=== PATIENT | male | born 1965 | race Two or more races ===

== ENCOUNTER 2021-11-26 19:33 | Emergency (ER) | payer OTHER ==
[~2021-11-26] VITALS: Ht 167.6 cm; Wt 70.3 kg
--- NOTE | 2021-11-26 19:33 | NUR ---
Henry from [facility] snf for gt dislodged/leaking per report ongoing tx for PNA. TRACH INTACT & RT AT PT'S BEDSIDE CONNECTED PT TO VENT SETTINGS. F/C IN GTUBE SITE AND OPEN. PT A/OX0; NONVERBAL. CONNECTED PT TO POX AND MONITOR. SAFETY MEASURES IN PLACE.
--- NOTE | 2021-11-26 20:33 | NUR ---
RT NOTE RECEIVED PT ON CURRENT VENT SETTING. AC 12 550 40% +5 WITH A PORTEX 7 TRACH. BS CLEAR BILATERALLY. MINIMAL SECRETIONS. MOSTLY ORAL SECRETIONS NOTED. VENT PLUGGED INTO RED OUTLETS. ALARMS ON AND AUDIBLE. NO S/SOF RESPIRATORY DISTRESS NOTED
--- NOTE | 2021-11-26 20:35 | NUR ---
20G ESTABLISHED AT AND [facility]. BLOOD COLLECTED AND SENT TO LAB.
--- NOTE | 2021-11-26 20:40 | NUR ---
ALETA COLLECTED AND SENT TO LAB
--- NOTE | 2021-11-26 20:42 | NUR ---
103.3 RECTAL TEMP. MADE AWARE. COOLING MEASURES IMPLEMENTED.
[2021-11-26] MEDS ORDERED: ACETAMINOPHEN 650 MG/SUPP.RECT RC ONE ×2 (20:46→21:00)
--- NOTE | 2021-11-26 21:10 | NUR ---
urine collected and sent to lab
[2021-11-26] MEDS ORDERED: PIPERACILLIN /TAZOBACTAM 3.375 G VIAL IV ONE (21:12)
[2021-11-26] MEDS ORDERED: VANCOMYCIN 1 GM VIAL ONE (21:12)
[2021-11-26] MEDS ORDERED: CEFEPIME 1 GM VIAL ONE (21:17)
--- NOTE | 2021-11-26 21:25 | NUR ---
DR. MARTIN GALVAN AT PT'S BEDSIDE INSERTED 22FR GTUBE. FLUSHES WELL; PATENT AND INTACT.
[2021-11-26] MEDS ORDERED: CEFEPIME 2 GM in IV D5W 100 ML IV ONE (21:30)
[2021-11-26] MEDS ORDERED: PIPERACILLIN /TAZOBACTAM 3.375 G in IV D5W 50 ML IV ONE (21:30)
[2021-11-26] MEDS ORDERED: VANCOMYCIN 1 GM in IV D5W 250 ML IV ONE (21:30)
[2021-11-26] MEDS ORDERED: IV NS 0.9% 1,000 ML BAG IV ONE (21:30)
--- NOTE | 2021-11-26 21:31 | NUR ---
SPOKE WITH DAUGHTER YEVGENIY BREWER, NOTIFIED OF PATIENT CONDITION. DAUGHTER REQUESTING TO HAVE PATIENT TRANSFERED BACK TO FACILITY AND DOES NOT WANT HOSPITALIZATION. DR MARTIN AGOSTO.
[2021-11-26 21:34] LABS: BILIRUBIN,URINE NEGATIVE (NEGATIVE); COLOR,URINE YELLOW (YELLOW); LEUKOCYTE ESTERASE ,URINE NEGATIVE (NEGATIVE); NITRITE, URINE NEGATIVE (NEGATIVE); PH,URINE 5.5 (5.0-8.0); PROTEIN,URINE 30 mg/dl (NEGATIVE); UGLUCOSE NEGATIVE (NEGATIVE); UROBILINOGEN,URINE 0.2 EU/dL (0.2)
[2021-11-26 21:38] LABS: BILIRUBIN,DIRECT 0.2 mg/dL (0.0-0.2); CALCIUM, SERUM 10.6 mg/dL (8.5-10.1); CREATININE 0.7 mg/dL (0.6-1.3); TOTAL PROTEIN, SERUM 7.4 g/dL (6.4-8.2)
[2021-11-26 21:41] LABS: BACTERIA,URINE 1+ /HPF (None Seen); WBC,URINE 0-2 /HPF (0-3)
--- NOTE | 2021-11-26 21:43 | NUR ---
[facility] CALLED FOR RT TRANSPORT. ETA [phone]
[2021-11-26 21:44] LABS: BASOPHILS % (AUTO) 0.4 % (0.0-2.0); EOSINOPHILS % (AUTO) 1.8 % (0.0-6.0); LYMPHOCYTES # (AUTO) 1.3 K/uL (0.8-4.8); LYMPHOCYTES % (AUTO) 23.8 % (20.0-44.0); MEAN CORPUSCULAR HGB CONC 29 g/dl (31.0-36.0); MEAN CORPUSCULAR VOLUME 90 fL (80-96); MONOCYTES # (AUTO) 0.3 K/uL (0.1-1.30); MONOCYTES % (AUTO) 4.9 % (2.0-12.0); NEUTROPHILS # (AUTO) 3.9 K/uL (1.8-8.9); NEUTROPHILS % (AUTO) 69.1 % (43.0-81.0); PLATELET COUNT (AUTO) 311 K/uL (150-450); RED BLOOD CELL COUNT(AUTO) 2.23 MIL/uL (4.5-6.0); WHITE BLOOD COUNT (AUTO) 5.6 K/uL (4.3-11.0)
[2021-11-26 21:44] LABS: HYALINE CASTS, URINE Few /LPF (None Seen)
[2021-11-26 21:46] LABS: FINE GRANULAR CASTS,URINE Few /LPF (None Seen); MUCUS,URINE Moderate /LPF (None Seen)
[2021-11-26 21:51] LABS: BILIRUBIN,TOTAL 0.6 mg/dL (0.2-1.0); HEMOGLOBIN 5.9 g/dL (13.5-17.5)
--- NOTE | 2021-11-26 21:51 | NUR ---
CALL FROM LAB. HGB 5.9, HCT 20
[2021-11-26 21:52] LABS: HEMATOCRIT 20 % (39-51)
[2021-11-26 21:59] LABS: POTASSIUM 3.2 mmol/L (3.5-5.1)
[2021-11-26 22:02] LABS: ALBUMIN 1.3 g/dL (3.4-5.0)
--- NOTE | 2021-11-26 22:02 | NUR ---
CRITICAL LAB: SODIUM 161, ALB 1.3
[2021-11-26 22:12] LABS: BAND % (MANUAL) 16 % (0.0-5.0); EOSINOPHILS % (MANUAL) 3 % (0-4); LYMPHOCYTES % (MANUAL) 19 % (16-48); METAMYELOCYTES % 1 % (0-0); MONOCYTES % (MANUAL) 4 % (0-11.0); NEUTROPHILS % (MANUAL) 57 (42-76)
--- NOTE | 2021-11-27 04:27 | NUR ---
RT AT PT'S BEDSIDE
--- NOTE | 2021-11-27 07:03 | NUR ---
ATTEMPTED TO GIVE REPORT TO SUNNY RODRIGEZ RN, STATED TO CALL BACK FOR REPORT IN 30 MINUTES
--- NOTE | 2021-11-27 07:05 | NUR ---
CALLED FOR [facility] ADMITTING; STATED NOT AVAILABLE AT THIS TIME.
--- NOTE | 2021-11-27 07:57 | NUR ---
REPORT GIVEN TO DEVIKA FOR [facility]
[2021-11-27 08:54] VITALS: BP 108/66
--- NOTE | 2021-11-27 09:06 | NUR ---
PUNCHBOARD INSERTER AND RT AT BEDSIDE TO PICKUP PT.
--- NOTE | 2021-11-27 09:21 | NUR ---
Patient discharged to [facility] via gurney, accompanied by risk management specialist and RT, in stable condition. New G-tube Fr [address] Pt on mech vent w/ settings confirmed by RT. Written and verbal after care instructions given. Report given to RN steam powerplant supervisor at [facility], verbalized understanding of instruction.
== END 2021-11-27 09:23 ==
LOC: ER 19:35
DX: Z43.1 Encounter for attention to gastrostomy (principal); A41.9 Sepsis, unspecified organism; G40.909 Epilepsy, unspecified, not intractable, without status epilepticus; I48.92 Unspecified atrial flutter; R00.0 Tachycardia, unspecified; Z87.01 Personal history of pneumonia (recurrent); Z20.822 Contact with and (suspected) exposure to COVID-19; R94.31 Abnormal electrocardiogram [ECG] [EKG]; I45.10 Unspecified right bundle-branch block; Z66 Do not resuscitate; D64.9 Anemia, unspecified; J96.90 Respiratory failure, unspecified, unspecified whether with hypoxia or hypercapnia; Z93.0 Tracheostomy status
CPT/HCPCS: 99285; 43762; 96365; 71045; 96366; 87426; 84145; 85025; 80048; 87040 ×2; 87086; 83605; 80076; 81001; 36415; 85730; 96368; 93005; 85007; J3370; J2543; J7060 ×2; J7030; J0692; C9803